=== PATIENT | male | born 1950 | race Caucasian/White ===

== ENCOUNTER 2018-04-18 22:53 | Inpatient (IN) | payer MEDICARE ==
[~2018-04-18] VITALS: Ht 185.4 cm; Wt 75.5 kg
[2018-04-18] MEDS ORDERED: ASPIRIN 81 MG TABLET CHEW ONE (22:57)
[2018-04-18] MEDS ORDERED: ASPIRIN 81 MG TABLET CHEW PO ONE (23:00)
[2018-04-18] MEDS ORDERED: SODIUM CHLORIDE FLUSH 10ML SYR IVF ONE (23:00)
[2018-04-18] MEDS ORDERED: METO25TA91 PO (23:08)
[2018-04-18] MEDS ORDERED: LEVO125T PO (23:08)
[2018-04-18 23:20] LABS: BASOPHILS # (AUTO) 0.07 x10^3/uL (0-0.1); BASOPHILS % (AUTO) 1 % (0-1); EOSINOPHILS # (AUTO) 0.41 x10^3/uL (0-0.4); EOSINOPHILS % (AUTO) 6 % (1-7); LYMPHOCYTES # (AUTO) 2.28 x10^3/uL (1-3.4); LYMPHOCYTES % (AUTO) 34 % (22-44); MD NO; MEAN CORPUSCULAR HEMOGLOBIN 30.8 pg (27.5-34.5); MEAN CORPUSCULAR HGB CONC 33.7 g/dL (33.2-36.2); MEAN CORPUSCULAR VOLUME 91.2 fL (81-97); MEAN PLATELET VOLUME 6.7 fL (7.4-10.4); MONOCYTES # (AUTO) 0.76 x10^3/uL (0.2-0.8); MONOCYTES % (AUTO) 11 % (2-9); NEUTROPHILS # (AUTO) 3.21 x10^3/uL (1.8-6.8); NEUTROPHILS % (AUTO) 48 % (42-75); PLATELET COUNT 296 x10^3/uL (130-400); RED BLOOD COUNT 4.39 x10^6/uL (4.38-5.82); RED CELL DISTRIBUTION WIDTH 14.9 % (9.4-14.8)
[2018-04-18 23:24] LABS: INTERNATIONAL NORMALIZED RATIO 0.95 (0.93-1.1); PROTHROMBIN TIME 9.8 Seconds (9.6-11.5)
[2018-04-18 23:29] LABS: ALANINE AMINOTRANSFERASE 26 U/L (12-78); ALBUMIN 3.6 g/dL (3.4-5.0); ANION GAP 12 mmol/L (5-15); CALCIUM 8.1 mg/dL (8.5-10.1); CHLORIDE 100 mmol/L (98-107); CREATININE 0.95 mg/dL (0.7-1.3)
[2018-04-18] MEDS ORDERED: PLEASE ENTER ALLERGIES MC SCH (23:30)
[2018-04-18 23:33] LABS: ALKALINE PHOSPHATASE 100 U/L (45-117); BILIRUBIN,TOTAL 0.2 mg/dL (0.2-1.0); TOTAL PROTEIN 6.8 g/dL (6.4-8.2); TROPONIN I < 0.015 ng/mL (0.000-0.045)
[2018-04-19] VITALS (8 sets, daily range): BP systolic 123–177; BP diastolic 80–125
[2018-04-19] MEDS ORDERED: DEXTROSE 50%, 50ML SYRINGE IVPush ONE
[2018-04-19] MEDS ORDERED: DEXTROSE 50%, 50ML SYRINGE ONE (00:10)
[2018-04-19] MEDS ORDERED: POTASSIUM CHLORIDE 40 MEQ in SODIUM CHLORIDE 0.9% 500 ML IV ONE (01:00)
[2018-04-19] MEDS ORDERED: CARB200T PO (02:35)
[2018-04-19] MEDS ORDERED: NS + 20MEQ KCL 1,000 ML IV SCH (05:32)
[2018-04-19] MEDS: ENOXAPARIN 40 MG/0.4 ML SQ SCH (05:55)
[2018-04-19] MEDS ORDERED: ONDANSETRON 2MG/ML, 2ML IVPush PRN (06:00)
[2018-04-19] MEDS ORDERED: ACETAMINOPHEN 325 MG TABLET PO PRN (06:00)
[2018-04-19] MEDS ORDERED: POTASSIUM CHLORIDE 20 MEQ TAB.ER.PRT PO ONE (06:00)
[2018-04-19] MEDS ORDERED: POLYETHYLENE GLYCOL 17 GM PACKET PO PRN (06:00)
[2018-04-19 06:43] LABS: CHOLESTEROL, TOTAL 133 mg/dL (140-239); TRIGLYCERIDES 51 mg/dL (50-200); VLDL CHOLESTEROL 10 mg/dL (0-25)
[2018-04-19 06:47] LABS: CHOL/HDL RATIO 1.9; HDL CHOL % 52 % (26-37); HDL CHOLESTEROL (DIRECT) 69 mg/dL (40-60); LDL CHOLESTEROL,CALCULATED 54 mg/dL (54-169); LDL/HDL RATIO 0.8 (0.5-3.0); TROPONIN I < 0.015 ng/mL (0.000-0.045)
[2018-04-19 06:52] LABS: THYROID STIMULATING HORMONE 0.777 mIU/L (0.358-3.740)
[2018-04-19 07:51] LABS: MD YES; MEAN CORPUSCULAR HEMOGLOBIN 30.8 pg (27.5-34.5); MEAN CORPUSCULAR HGB CONC 34.1 g/dL (33.2-36.2); MEAN CORPUSCULAR VOLUME 90.4 fL (81-97); MEAN PLATELET VOLUME 7.1 fL (7.4-10.4); PLATELET COUNT 218 x10^3/uL (130-400); RED BLOOD COUNT 4.41 x10^6/uL (4.38-5.82); RED CELL DISTRIBUTION WIDTH 14.6 % (9.4-14.8)
[2018-04-19 08:02] LABS: <RBC MORPHOLOGY> NORMAL; BAND#(MANUAL) 0.28 x10^3/uL; BANDS%(MANUAL) 3 % (0-7); EOS#(MANUAL) 0.09 x10^3/uL (0.0-0.4); EOS% (MANUAL) 1 % (1-7); LYMPH#(MANUAL) 1.01 x10^3/uL (1-3.4); LYMPHS% (MANUAL) 11 % (22-44); MONOS#(MANUAL) 0.74 x10^3/uL (0.3-2.7); MONOS% (MANUAL) 8 % (2-9); SEG#(MANUAL) 7.08 x10^3/uL (1.8-6.8); SEGS% (MANUAL) 77 % (42-75)
[2018-04-19] MEDS: CARBAMAZEPINE 200 MG TABLET PO SCH ×4 (08:48→20:07)
[2018-04-19] MEDS: METOPROLOL TARTRATE 25 MG TABLET PO SCH ×2 (08:48→17:06)
[2018-04-19 09:16] LABS: ALBUMIN 3.8 g/dL (3.4-5.0); ANION GAP 6 mmol/L (5-15); CALCIUM 8.7 mg/dL (8.5-10.1); CHLORIDE 104 mmol/L (98-107); CREATININE 0.92 mg/dL (0.7-1.3)
[2018-04-19 10:11] LABS: <PLATELET ESTIMATE> ADEQUATE; <PLT MORPHOLOGY> NORMAL PLT MORPH
[2018-04-19] MEDS: SODIUM CHLORIDE 0.9% 1,000 ML IV SCH (12:23)
[2018-04-19] MEDS ORDERED: REGADENOSON 0.4 MG/5 ML SYRINGE ONE (13:04)
[2018-04-20] MEDS: METOPROLOL TARTRATE 25 MG TABLET PO SCH (01:27)
[2018-04-20 01:30] VITALS: BP 151/88
[2018-04-20] MEDS: SODIUM CHLORIDE 0.9% 1,000 ML IV SCH (02:41)
[2018-04-20] MEDS: ENOXAPARIN 40 MG/0.4 ML SQ SCH (05:09)
[2018-04-20 05:47] LABS: ALBUMIN 3.4 g/dL (3.4-5.0); ANION GAP 7 mmol/L (5-15); CALCIUM 8.7 mg/dL (8.5-10.1); CHLORIDE 102 mmol/L (98-107); CREATININE 0.85 mg/dL (0.7-1.3)
[2018-04-20] MEDS ORDERED: LEVOTHYROXINE 125 MCG TABLET PO SCH (07:30)
[2018-04-20 08:52] VITALS: BP 147/91
[2018-04-20] MEDS ORDERED: LISINOPRIL 5 MG TABLET PO SCH (09:00)
[2018-04-20] MEDS ORDERED: ASPIRIN 81 MG TABLET CHEW PO SCH (09:00)
[2018-04-20] MEDS ORDERED: METOPROLOL SUCCINATE 25 MG TAB.ER.24H PO SCH (09:00)
[2018-04-20] MEDS: CARBAMAZEPINE 200 MG TABLET PO SCH ×2 (09:54→14:26)
[2018-04-20] MEDS ORDERED: ASPI-515 PO (11:05)
[2018-04-20] MEDS ORDERED: ATOR40TA78 PO (11:05)
[2018-04-20] MEDS ORDERED: LISI5TAB7 PO (11:05)
[2018-04-20] MEDS ORDERED: ATORVASTATIN 40 MG TABLET PO SCH (21:00)
== END 2018-04-20 14:38 | disposition home or self-care (01) | DRG 74 ==
LOC: ED 23:59 → EDIP 04-19 00:58 → 5SO 04-19 01:33
PROVIDERS: ADMIT Hospitalist; ATTEND Hospitalist
DX: G90.9 Disorder of the autonomic nervous system, unspecified (principal); E87.1 Hypo-osmolality and hyponatremia; I25.5 Ischemic cardiomyopathy; E16.2 Hypoglycemia, unspecified; E03.9 Hypothyroidism, unspecified; E87.6 Hypokalemia; F17.210 Nicotine dependence, cigarettes, uncomplicated; G40.909 Epilepsy, unspecified, not intractable, without status epilepticus; I10 Essential (primary) hypertension; Z96.642 Presence of left artificial hip joint; R00.1 Bradycardia, unspecified; R94.31 Abnormal electrocardiogram [ECG] [EKG]; I25.10 Atherosclerotic heart disease of native coronary artery without angina pectoris; I25.2 Old myocardial infarction; Z79.82 Long term (current) use of aspirin; Z95.5 Presence of coronary angioplasty implant and graft; Z79.899 Other long term (current) drug therapy; Z72.89 Other problems related to lifestyle; Z88.2 Allergy status to sulfonamides
CPT/HCPCS: 36415; 71045; 78452; 80048; 80053; 80061; 82040; 82962; 83735; 83880; 84100; 84443; 84484; 85025; 85610; 85730; 93005; 93017; 93306; 93880; 96374; J1650; J2785; J3480; A9502; C9898; J7030; J7040

== ENCOUNTER 2020-03-21 13:39 | Outpatient (CLI) | payer MEDICARE ==
[~2020-03-21 13:39] MED LIST: ACET325T26 PO; AMOX1TAB64 PO; ASPI-515 PO; ATOR40TA78 PO; CARB200T PO; DOCU100C33 PO; FAMO20TA7 PO; FOLI-17 PO; IPRA3AMP30 NPPB; LEVO125T PO; LISI5TAB7 PO; METO25TA91 PO; ONDA4TAB13 PO; SENN-193 PO; THIA100T67 PO
== END 2020-03-21 23:59 | disposition home or self-care (01) ==
LOC: CFH 13:39
PROVIDERS: ATTEND Nurse Practitioner Family
DX: I67.82 Cerebral ischemia (principal); I63.81 Other cerebral infarction due to occlusion or stenosis of small artery; G31.89 Other specified degenerative diseases of nervous system
CPT/HCPCS: 70551